=== PATIENT | female | born 1990 | race Caucasian/White ===

== ENCOUNTER → 2016-08-28 | Outpatient (CLI) | payer OTHER ==
[2016-08-28 12:58] LABS: ESTIMATED AVERAGE GLUCOSE 108 mg/dl; HA1C FLAG Normal (Normal)
[2016-08-28 13:16] LABS: CHOLESTEROL/HDL RATIO 2.8
== END | disposition home or self-care (01) ==
LOC: C.LAB 11:37
PROVIDERS: ATTEND Physician Assistant
DX: E78.5 Hyperlipidemia, unspecified (principal)

== ENCOUNTER → 2017-11-16 | Outpatient (CLI) | payer BC ==
[2017-11-16 11:14] LABS: ALBUMIN 3.4 gm/dl (3.4-5.0); ALKALINE PHOSPHATASE 42 U/L (45-117); ALT/SGPT 22 U/L (12-78); AST/SGOT 12 U/L (15-37); BLOOD UREA NITROGEN 11 mg/dl (7-18); CALCIUM 8.5 mg/dl (8.5-10.1); CARBON DIOXIDE 25 mmol/L (21-32); CHOLESTEROL 194 mg/dl (0-200); GLUCOSE 82 mg/dl (70-99); HEMOGLOBIN A1C 5.3 % (4.5-5.6); LDL CHOLESTEROL CALCULATED 106 mg/dl; POTASSIUM 3.9 mmol/L (3.5-5.1); SODIUM 140 mmol/L (136-145); TOTAL PROTEIN 6.9 gm/dl (6.4-8.2)
== END | disposition home or self-care (01) ==
LOC: C.LAB 10:23
PROVIDERS: ATTEND Physician Assistant
DX: E28.2 Polycystic ovarian syndrome (principal); E16.1 Other hypoglycemia; E66.01 Morbid (severe) obesity due to excess calories; E78.5 Hyperlipidemia, unspecified; E55.9 Vitamin D deficiency, unspecified

== ENCOUNTER 2019-04-20 07:39 | Inpatient (IN) ==
[2019-04-20] MEDS ORDERED: OXYTOCIN 30 UNITS/500 ML BAG IV PRN ×3 (08:17→23:20)
[2019-04-20] MEDS: LACTATED RINGER'S 1,000 ML IV PRN ×3 (08:40→19:03)
--- NOTE | 2019-04-20 08:43 | History & Physical Report ---
Date of Service April 20, 2019 History of Present Illness Primary Care Provider: Gini Tinoco DO Allergies Allergy/AdvReac Type Severity Reaction Status Date / Time amoxicillin Allergy Severe Swelling Verified 04/20/19 08:20 of Lip/Tongue/Throat Penicillins Allergy Intermediate LIP Verified 04/19/19 19:11 SWELLING. sertraline [From Zoloft] AdvReac Intermediate Fainting Verified 04/20/19 08:20 Home Medications Home Medications Medication Instructions Recorded Confirmed Type duloxetine [Cymbalta] 40 mg PO DAILY 01/11/19 04/19/19 History vit no.[id number] 1 tab PO DAILY 01/11/19 04/19/19 History [ Vitamin] ranitidine HCl [Zantac] 150 mg PO DAILY 01/11/19 04/19/19 History trazodone 150 mg PO HS PRN 01/11/19 04/19/19 History OneTouch Delica Plus Lancet 33 #150 ea NS 01/22/19 04/17/19 Rx gauge OneTouch Verio #150 ea NS 01/22/19 04/17/19 Rx OneTouch Verio Flex Start #1 ea NS 01/22/19 04/17/19 Rx insulin aspart U-100 100 unit/mL See Rx Instructions SQ .COMPLEX 03/13/19 04/19/19 Rx (3 mL) subcutaneous pen #15 ml insulin syringe-needle U-100 0.3 #50 ea 03/13/19 04/17/19 Rx mL 31 gauge x 5/16" pen needle, diabetic 32 gauge x #100 ea 03/13/19 04/17/19 Rx 5/32" cetirizine 10 mg PO DAILY 04/03/19 04/19/19 History insulin NPH isoph U-100 human 35 units SQ QPM 04/19/19 04/19/19 History [Novolin N NPH U-100 Insulin] Patient History Surgical History (Updated 03/21/19 @ 11:10 by Timi Bernard Jr, MD, FACOG) H/O wisdom tooth extraction (Resolved) Family History (Updated 12/01/18 @ 10:42 by Gini Ramsey) Father Deep vein thrombosis Heart disease Dyslipidemia Hypertension Aunt Ovarian cancer Grandfather (Maternal) No problems noted. Grandfather (Paternal) No problems noted. Grandmother (Maternal) No problems noted. Grandmother (Paternal) No problems noted. Mother Depression Breast cancer Cataract Thyroid disease Uncle Colorectal cancer Diabetes Other COPD (chronic obstructive pulmonary disease) Social History (Updated 12/01/18 @ 10:42 by Gini Ramsey) Preferred Language: Jamaican marital status: Feels Safe at Home: Yes Smoking Status: Never smoker Second Hand Exposure: No ; Hx Alcohol Use: No Hx Substance Use: No Results & Data Vital Signs (Past 12 Hours) Vital Signs Pulse BP 04/20/19 08:02 102 H 129/82
--- NOTE | 2019-04-20 08:44 | History & Physical Report ---
Date of Service April 20, 2019 Assessment & Plan (1) Supervision of normal first : with insulin controlled DM who presents to the L&D floor for induction of labor for post-dates after mcintyre bulb placement. 1) Induction of labor - pitocin started at 0.06u/hr for labor augmentation - will continue to monitor tocometry and FHT - continue supportive care - will re-eval and rupture membranes if necessary during the course of augmentation 2) Insulin managed DM - blood sugar checks Q1H - NPO - carbohydrates for low BSG PRN 3) Anxiety and Depression - continue home medications of cymbalta 40 mg QAM and trazodone 150mg QHS FEN/GI: Lactated ringers 125 ml/hr Q8H + Pit 30u/500 mL Q24H DVT Ppx: none Diet: NPO Code status: Full Dispo: L&D (2) Insulin controlled gestational diabetes mellitus (GDM) during , antepartum: (3) PCOS (polycystic ovarian syndrome): (4) Anxiety: History of Present Illness Primary Care Provider: Gini Tinoco, DO [id number] confirmed via ultrasound. Here for induction of labor for postdates after mcintyre bulb placement yesterday. Complications with this include management of insulin controlled GDM. Has been attending OB appointments regularly. PMH includes anxiety and depression treated with Cymbalta 40mg QAM and Trazodone 150 mg Nightly, as well as PCOS. No previous hx of pregnancies or miscarriages. Fmhx includes mother who had 7 miscarriages prior to 2 viable pregnancies -- patient unsure if cause of miscarriages was PCOS or other disorder. No coagulopathies or bleeding disorders to patient's knowledge. Radha bliss takes 5 units of short acting insulin with breakfast and lunch, 10 units with dinner and 35 unit of long acting insulin at bedtime. Last night she took only 30 units as she will be NPO during induction. Contractions: occasional, non-rhythmic. Fluid or Blood loss: none Movement: active Labs Blood type: A+ Antibody screen: negative H.0 Hct: 40.8 Wbc: 10.03 Plt: 202 Rubella: immune VDRL/RPR: nonreactive Gonorrhea: not detected Chlamydia: not detected GBS: negative Glucose tolerance x2:DM managed with insulin Allergies Allergy/AdvReac Type Severity Reaction Status Date / Time amoxicillin Allergy Severe Swelling Verified 04/20/19 08:20 of Lip/Tongue/Throat Penicillins Allergy Intermediate LIP Verified 04/19/19 19:11 SWELLING. sertraline [From Zoloft] AdvReac Intermediate Fainting Verified 04/20/19 08:20 Home Medications Home Medications Medication Instructions Recorded Confirmed Type duloxetine [Cymbalta] 40 mg PO DAILY 01/11/19 04/19/19 History vit no.[id number] 1 tab PO DAILY 01/11/19 04/19/19 History [ Vitamin] ranitidine HCl [Zantac] 150 mg PO DAILY 01/11/19 04/19/19 History trazodone 150 mg PO HS PRN 01/11/19 04/19/19 History OneTouch Delica Plus Lancet 33 #150 ea NS 01/22/19 04/17/19 Rx gauge OneTouch Verio #150 ea NS 01/22/19 04/17/19 Rx OneTouch Verio Flex Start #1 ea NS 01/22/19 04/17/19 Rx insulin aspart U-100 100 unit/mL See Rx Instructions SQ .COMPLEX 03/13/19 04/19/19 Rx (3 mL) subcutaneous pen #15 ml insulin syringe-needle U-100 0.3 #50 ea 03/13/19 04/17/19 Rx mL 31 gauge x 5/16" pen needle, diabetic 32 gauge x #100 ea 03/13/19 04/17/19 Rx 5/32" cetirizine 10 mg PO DAILY 04/03/19 04/19/19 History insulin NPH isoph U-100 human 35 units SQ QPM 04/19/19 04/19/19 History [Novolin N NPH U-100 Insulin] Patient History Medical History Anxiety (Chronic) Metabolic syndrome PCOS (polycystic ovarian syndrome) (Chronic) Pre-diabetes Restless leg syndrome (Chronic) Varicella Surgical History H/O wisdom tooth extraction (Resolved) Family History Father Deep vein thrombosis Heart disease Dyslipidemia Hypertension Aunt Ovarian cancer Grandfather (Maternal) No problems noted. Grandfather (Paternal) No problems noted. Grandmother (Maternal) No problems noted. Grandmother (Paternal) No problems noted. Mother Depression Breast cancer Cataract Thyroid disease Uncle Colorectal cancer Diabetes Other COPD (chronic obstructive pulmonary disease) Social History Preferred Language: Moroccan Communication Ability: Effective Beliefs That Will Affect Care: None marital status: Current Living Situation: Spouse Other Information That Helps Us Care for You: No Feels Safe at Home: Yes Safety Concerns: Feels Safe At This Time Smoking Status: Never smoker Do You Dip or Chew Tobacco: No ; Second Hand Exposure: No ; Hx Alcohol Use: No Hx Substance Use: No Review of Systems no fever, no chills and no fatigue no diplopia no cough, no dyspnea and no wheezing no chest pain, no edema and no calf pain no abdominal pain, no nausea, no vomiting, no cramping, no constipation and no diarrhea/loose stools no dysuria and no difficulty urinating no back pain no headache(s) Physical Exam Constitutional: well developed and well nourished Respiratory: normal respiratory effort; no respiratory distress, no labored breathing and no cough Auscultation: no diminished lung sounds, no crackles, no rales, no rhonchi and no wheezes Cardiovascular: Rate/Rhythm: regular rate and regular rhythm Extremities: normal capillary refill; no calf tenderness and no pedal edema Gastrointestinal (Abdomen): Inspection/Auscultation: + abdomen distended and normal bowel sounds Percussion/Palpation: abdomen nontender and no guarding Genitourinary: Cervical Exam per Dr. Coombs Dilation - 4cm Effacement - 80% Station - -2, anterior, soft Results & Data Vital Signs (Past 12 Hours) Vital Signs Pulse BP 04/20/19 08:02 102 H 129/82 04/20/19 Range/Units 08:37 WBC 10.03 (4.8-10.8) K/uL RBC 4.58 (4.2-5.4) M/uL Hgb 13.0 (12.0-16.0) g/dL Hct 40.8 (37-47) % MCV 89.1 (80-100) fL MCH 28.4 (25-34) pg MCHC 31.9 L (32-36) g/dL RDW Std Deviation 44.7 (36.4-46.3) fL RDW Coeff of Umberto 13.8 (11.5-14.5) % Plt Count 202 (130-400) K/uL MPV 10.8 H (7.4-10.4) fL Monitoring External Monitor Baseline Hr 140 BPM Accelerations present No late or early decels Moderate Variability Category I heart tracing Tocodynamometer mild contractions every 6 minutes Supervising Physician Co-Signing Physician Notes Resident Physician Supervision Note: I interviewed and examined the patient. Discussed with Dr. Benson and agree with findings and plan as documented in the note. Any exceptions or clarifications are listed here: &P per Dr. Benson. Patient is a with iup at 39 2/7 weeks who presents for induction of labor because of insulin requiring gdm. Patient was prediabetic/pcos prior to so has been treated as a diabetic in . Last us shows a efw 79%, ac 81%. Had mcintyre placed last night and 4cm dilated today. Plan pitocin induction. arom when indicated. Epidural on demand. anticipate . Documented By: Magy Olivares MD, FACOG Resident Activity Tracking Resident Involvement: Resident Care Provided Care Provided: Adult Hospital Medicine and OB Delivery (1) Supervision of normal first Trimester: third trimester Qualified Code(s): Z34.03 - Encounter for supervision of normal first , third trimester
[2019-04-20 08:45] LABS: Hematocrit (blood only) 40.8 % (37-47); Mean Corpuscular Hemoglobin 28.4 pg (25-34); Mean Corpuscular Volume 89.1 fL (80-100); Mean Platelet Volume 10.8 fL (7.4-10.4); Platelet Count 202 K/uL (130-400); RDW Coefficient of Variation 13.8 % (11.5-14.5); RDW Standard Deviation 44.7 fL (36.4-46.3); Red Blood Count 4.58 M/uL (4.2-5.4); White Blood Count 10.03 K/uL (4.8-10.8)
[2019-04-20 08:49] LABS: Mean Corpuscular Hgb Conc 31.9 g/dL (32-36)
[2019-04-20] MEDS: CARBOHYDRATES FOR HYPOGLYCEMIA PO PRN ×3 (09:00→15:45)
--- NOTE | 2019-04-20 12:59 | Labor Progress Brief Note ---
Date of Service April 20, 2019 Subjective Noting some contractions. Assessment & Plan (1) Insulin controlled gestational diabetes mellitus (GDM) during , antepartum: continue pitocin induction. epidural on demand. Fetus category one. Anticipate . sugars being managed goal 70-120. Physical Exam Constitutional: WD/WN, vitals as above Psychiatric: A+Ox3, euthymic affect Genitourinary: cx--4/80/-2 arom--green mec toco--q2-3min, pit at 7 efm--130s wtih mod variability, accels to 150s, no decels Results & Data Vital Signs (Past 12 Hours) Vital Signs Temp Pulse Resp BP 04/20/19 12:05 86 114/66 04/20/19 11:00 94 H 129/71 04/20/19 10:00 91 H 121/75 04/20/19 08:58 96 H 131/78 04/20/19 08:02 102 H 129/82 04/20/19 07:52 36.7 C 20
[2019-04-20] MEDS ORDERED: ePHEDrine sulfate 50 MG/ML AMP ONE (13:57)
[2019-04-20] MEDS ORDERED: BUPIVACAINE 0.25% 30 ML VIAL ONE (13:57)
[2019-04-20] MEDS ORDERED: fentaNYL citrate 100 MCG/2 ML VIAL ONE (13:57)
[2019-04-20] MEDS ORDERED: fentaNYL 2MCG/ML ROPIV 1.25MG/ML 100 ML BAG EPI ONE (13:58)
--- NOTE | 2019-04-20 14:17 | Anesthesiology Consultation ---
Date of Service April 20, 2019 Assessment & Plan (1) Encounter for pre-operative examination: Chart Review Chart Review: Patient NOT seen in Pre Admission Testing and Acceptable Risk for Labor Epidural Consults Requested none History Height/Weight Height: 5 ft 4 in Weight: 113.852 kg Allergies Allergy/AdvReac Type Severity Reaction Status Date / Time amoxicillin Allergy Severe Swelling Verified 04/20/19 08:20 of Lip/Tongue/Throat Penicillins Allergy Intermediate LIP Verified 04/19/19 19:11 SWELLING. sertraline [From Zoloft] AdvReac Intermediate Fainting Verified 04/20/19 08:20 Medications Home Medications Medication Instructions Recorded Confirmed Last Taken duloxetine [Cymbalta] 40 mg PO DAILY 01/11/19 04/20/19 04/20/19 06:00 1 vit no.[id number] 1 tab PO DAILY 01/11/19 04/20/19 04/19/19 06:00 [ Vitamin] 1 ranitidine HCl [Zantac] 150 mg PO DAILY 01/11/19 04/20/19 04/20/19 06:00 1 trazodone 150 mg PO HS PRN 01/11/19 04/20/19 04/19/19 22:30 OneTouch Delica Plus Lancet 33 #150 ea NS 01/22/19 04/17/19 Unknown gauge OneTouch Verio #150 ea NS 01/22/19 04/17/19 Unknown OneTouch Verio Flex Start #1 ea NS 01/22/19 04/17/19 Unknown insulin aspart U-100 100 unit/mL See Rx Instructions SQ .COMPLEX 03/13/19 04/20/19 04/19/19 19:00 (3 mL) subcutaneous pen #15 ml insulin syringe-needle U-100 0.3 #50 ea 03/13/19 04/17/19 Unknown mL 31 gauge x 5/16" pen needle, diabetic 32 gauge x #100 ea 03/13/19 04/17/19 Unknown 5/32" cetirizine 10 mg PO DAILY 04/03/19 04/20/19 04/19/19 22:00 1 insulin NPH isoph U-100 human 35 units SQ QPM 04/19/19 04/20/19 04/19/19 21:00 [Novolin N NPH U-100 Insulin] Active Medications Generic Name Dose Route Start Last Admin Trade Name Freq PRN Reason Stop Dose Admin Lactated Ringer's 1,000 mls @ 125 mls/hr 04/20/19 08:17 04/20/19 14:00 Lr IV 04/22/19 08:16 999 mls/hr .Q8H PRN Infusion L&D Protocol Protocol Oxytocin 30 units in 500 mls @ 7 mls/hr 04/20/19 08:17 04/20/19 11:55 Pitocin IV 04/22/19 08:16 0.42 units/hr .Q24H PRN 7 mls/hr Labor Induction/Augmentation Titration Protocol 0.42 UNITS/HR Miscellaneous 0 gm 04/20/19 10:11 04/20/19 12:15 Carbohydrates For Hypoglycemia PO 05/20/19 10:10 30 gm PRN PRN Administration Hypoglycemia Treatment Past Medical History Medical History Anxiety (Chronic) Metabolic syndrome PCOS (polycystic ovarian syndrome) (Chronic) Pre-diabetes Restless leg syndrome (Chronic) Varicella Exercise / Class Metabolic Activity II 4-5 Yardwork/Stairs/Walk up hill Past Family History Family History Father Deep vein thrombosis Heart disease Dyslipidemia Hypertension Aunt Ovarian cancer Grandfather (Maternal) No problems noted. Grandfather (Paternal) No problems noted. Grandmother (Maternal) No problems noted. Grandmother (Paternal) No problems noted. Mother Depression Breast cancer Cataract Thyroid disease Uncle Colorectal cancer Diabetes Other COPD (chronic obstructive pulmonary disease) Past Surgical History Surgical History H/O wisdom tooth extraction (Resolved) Past Anesthesia History No Hx of Anesthesia Complications and No Family Hx of Anesthesia Complications History of PONV No Hx of PONV and No Hx of Motion Sickness Social History Smoking Status: Never smoker Do You Dip or Chew Tobacco: No Hx Alcohol Use: No Hx Substance Use: No substance use type: does not use Physical Exam Vital Signs Last Vital Signs Temp 36.7 C 04/20/19 07:52 Pulse 93 H 04/20/19 13:12 Resp 20 04/20/19 07:52 BP 119/68 04/20/19 13:12 Testing Laboratory Results 04/20/19 08:37 04/20/19 04/20/19 04/20/19 13:35 12:36 12:18 POC Glucose 76 88 68 L* 04/20/19 04/20/19 04/20/19 11:17 10:16 09:56 POC Glucose 72 76 68 L* 04/20/19 09:01 POC Glucose 84
[2019-04-20] MEDS ORDERED: NALBUPHINE HCL INJ 10 MG/ML AMP IV PRN (14:18)
[2019-04-20] MEDS ORDERED: ePHEDrine sulfate 50 MG/ML AMP IV PRN (14:18)
[2019-04-20] MEDS ORDERED: NALOXONE HCL 0.4 MG/1 ML VIAL/CARP IV PRN (14:18)
[2019-04-20] MEDS ORDERED: DiphenhydrAMINE HCL 50 MG/ML VIAL IV PRN (14:18)
[2019-04-20] MEDS ORDERED: NALOXONE HCL 1 MG in SODIUM CHLORIDE 0.9% 1000ML 1,000 ML IV PRN (14:18)
[2019-04-20] MEDS ORDERED: fentaNYL 2MCG/ML ROPIV 1.25MG/ML 100 ML BAG EPI PRN (14:18)
[2019-04-20] MEDS ORDERED: ONDANSETRON INJ 2 MG/ML 2 ML VIAL IV PRN (14:18)
--- NOTE | 2019-04-20 17:23 | Labor Progress Brief Note ---
Date of Service April 20, 2019 Subjective noting some discomfort with contractions Assessment & Plan (1) Insulin controlled gestational diabetes mellitus (GDM) during , antepartum: Making nice change. Fetus reassuring. hold pit. Anticipate . Physical Exam Constitutional: WD/WN, vitals as above Psychiatric: A+Ox3, euthymic affect Genitourinary: cx--8/100/0 toco--q2-3min, pit at 9 efm--145 wtih mod variability, accels to 150s, no decels, +scalp stim Results & Data Vital Signs (Past 12 Hours) Vital Signs Temp Pulse Resp BP Pulse Ox 04/20/19 17:16 93 H 97 04/20/19 17:11 97 H 98 04/20/19 17:08 107 H 126/86 04/20/19 17:05 92 H 98 04/20/19 17:00 93 H 96 04/20/19 16:57 97 H 94 04/20/19 16:55 94 H 95 04/20/19 16:53 101 H 124/62 04/20/19 16:51 96 H 94 04/20/19 16:50 88 96 04/20/19 16:46 94 H 92 04/20/19 16:45 102 H 96 04/20/19 16:40 91 H 94 04/20/19 16:39 103 H 94 04/20/19 16:37 108 H 113/61 04/20/19 16:35 94 H 94 04/20/19 16:34 104 H 94 04/20/19 16:30 94 H 93 04/20/19 16:28 96 H 94 04/20/19 16:25 98 H 95 04/20/19 16:23 100 H 94 04/20/19 16:22 99 H 114/63 04/20/19 16:20 99 H 94 04/20/19 16:17 93 H 94 04/20/19 16:15 96 H 94 04/20/19 16:12 90 94 04/20/19 16:10 102 H 95 04/20/19 16:07 96 H 116/66 04/20/19 16:06 91 H 94 04/20/19 16:05 97 H 95 04/20/19 16:00 102 H 94 04/20/19 15:59 91 H 93 04/20/19 15:55 93 H 96 12/23/19 15:53 92 H 94 04/20/19 15:52 99 H 117/67 04/20/19 15:50 114 H 95 04/20/19 15:45 96 H 96 04/20/19 15:40 93 H 97 04/20/19 15:37 109 H 122/70 94 04/20/19 15:35 87 94 04/20/19 15:30 85 95 04/20/19 15:25 101 H 95 04/20/19 15:23 98 H 94 04/20/19 15:20 87 95 04/20/19 15:17 91 H 94 04/20/19 15:16 100 H 115/64 04/20/19 15:15 94 H 95 04/20/19 15:10 91 H 114/61 95 04/20/19 15:06 88 117/61 04/20/19 15:05 88 95 04/20/19 15:00 101 H 116/66 96 04/20/19 14:57 112 H 116/69 04/20/19 14:55 96 H 96 04/20/19 14:50 101 H 133/77 96 04/20/19 14:48 100 H 127/72 04/20/19 14:46 98 H 130/71 04/20/19 14:45 100 H 98 04/20/19 14:44 87 132/72 04/20/19 14:41 93 H 94 04/20/19 14:39 101 H 94 04/20/19 14:36 97 H 91 04/20/19 14:34 89 99 04/20/19 14:29 94 H 93 04/20/19 14:24 101 H 95 04/20/19 14:23 96 H 135/77 04/20/19 13:12 93 H 119/68 04/20/19 12:05 86 114/66 04/20/19 11:00 94 H 129/71 04/20/19 10:00 91 H 121/75 04/20/19 08:58 96 H 131/78 04/20/19 08:02 102 H 129/82 04/20/19 07:52 36.7 C 20
--- NOTE | 2019-04-20 19:55 | Labor Progress Brief Note ---
Date of Service April 20, 2019 Subjective some pressure with contractions Assessment & Plan (1) Insulin controlled gestational diabetes mellitus (GDM) during , antepartum: labor down for 30-45 min, then start second stage pushing. BS ok. anticipate Physical Exam Constitutional: WD/WN, vitals as above Psychiatric: A+Ox3, euthymic affect Genitourinary: cx--c/c/+1 toco--q2-4min efm--150s with mod variability, small accels, no decels Results & Data Vital Signs (Past 12 Hours) Vital Signs Temp Pulse Resp BP Pulse Ox 04/20/19 19:52 97 H 127/73 04/20/19 19:51 104 H 99 04/20/19 19:46 95 H 99 04/20/19 19:41 96 H 98 04/20/19 19:37 93 H 117/70 04/20/19 19:36 94 H 97 04/20/19 19:31 94 H 97 04/20/19 19:26 98 H 97 04/20/19 19:22 97 H 127/76 04/20/19 19:21 94 H 98 04/20/19 19:16 95 H 98 04/20/19 19:11 102 H 98 04/20/19 19:08 94 H 139/80 04/20/19 19:06 103 H 98 04/20/19 19:01 92 H 18 98 04/20/19 19:00 37.2 C 18 04/20/19 18:56 98 H 98 04/20/19 18:53 98 H 131/74 04/20/19 18:51 91 H 97 04/20/19 18:46 108 H 97 04/20/19 18:41 99 H 99 04/20/19 18:37 99 H 122/74 04/20/19 18:36 94 H 99 04/20/19 18:31 94 H 97 04/20/19 18:26 94 H 97 04/20/19 18:24 91 H 140/84 04/20/19 18:21 100 H 99 04/20/19 18:16 95 H 98 04/20/19 18:11 91 H 97 04/20/19 18:09 92 H 138/80 04/20/19 18:06 99 H 97 04/20/19 18:01 90 96 04/20/19 17:56 92 H 98 04/20/19 17:53 97 H 111/68 04/20/19 17:51 91 H 97 04/20/19 17:46 102 H 97 04/20/19 17:41 98 H 97 04/20/19 17:37 90 119/61 04/20/19 17:36 97 H 97 04/20/19 17:31 100 H 99 04/20/19 17:26 95 H 98 04/20/19 17:23 90 130/67 04/20/19 17:21 95 H 98 04/20/19 17:16 93 H 97 04/20/19 17:11 97 H 98 04/20/19 17:08 107 H 126/86 04/20/19 17:05 92 H 98 04/20/19 17:00 93 H 96 04/20/19 16:58 36.9 C 20 04/20/19 16:57 97 H 94 04/20/19 16:55 94 H 95 04/20/19 16:53 101 H 124/62 04/20/19 16:51 96 H 94 04/20/19 16:50 88 96 04/20/19 16:46 94 H 92 04/20/19 16:45 102 H 96 04/20/19 16:40 91 H 94 04/20/19 16:39 103 H 94 04/20/19 16:37 108 H 113/61 04/20/19 16:35 94 H 94 04/20/19 16:34 104 H 94 04/20/19 16:30 94 H 93 04/20/19 16:28 96 H 94 04/20/19 16:25 98 H 95 04/20/19 16:23 100 H 94 04/20/19 16:22 99 H 114/63 04/20/19 16:20 99 H 94 04/20/19 16:17 93 H 94 04/20/19 16:15 96 H 94 04/20/19 16:12 90 94 04/20/19 16:10 102 H 95 04/20/19 16:07 96 H 116/66 04/20/19 16:06 91 H 94 04/20/19 16:05 97 H 95 04/20/19 16:00 102 H 94 04/20/19 15:59 91 H 93 04/20/19 15:55 93 H 96 04/20/19 15:53 92 H 94 04/20/19 15:52 99 H 117/67 04/20/19 15:50 114 H 95 04/20/19 15:45 96 H 96 04/20/19 15:40 93 H 97 04/20/19 15:37 109 H 122/70 94 04/20/19 15:35 87 94 04/20/19 15:30 85 95 04/20/19 15:25 101 H 95 04/20/19 15:23 98 H 94 04/20/19 15:20 87 95 04/20/19 15:17 91 H 94 04/20/19 15:16 100 H 115/64 04/20/19 15:15 94 H 95 04/20/19 15:10 91 H 114/61 95 04/20/19 15:06 88 117/61 04/20/19 15:05 88 95 04/20/19 15:00 101 H 116/66 96 04/20/19 14:57 112 H 116/69 04/20/19 14:55 96 H 96 04/20/19 14:50 101 H 133/77 96 04/20/19 14:48 100 H 127/72 04/20/19 14:46 98 H 130/71 04/20/19 14:45 100 H 98 04/20/19 14:44 87 132/72 04/20/19 14:41 93 H 94 04/20/19 14:39 101 H 94 04/20/19 14:36 97 H 91 04/20/19 14:34 89 99 04/20/19 14:29 94 H 93 04/20/19 14:24 101 H 95 04/20/19 14:23 96 H 135/77 04/20/19 13:12 93 H 119/68 04/20/19 12:05 86 114/66 04/20/19 11:00 94 H 129/71 04/20/19 10:00 91 H 121/75 04/20/19 08:58 96 H 131/78 04/20/19 08:02 102 H 129/82
--- NOTE | 2019-04-20 21:38 | Delivery Summary ---
Vaginal Delivery Summary Date of Service April 20, 2019 Vaginal Delivery Summary Pre-operative Diagnosis: iup at 39 5/7 insulin requiring GDM Post-operative Diagnosis: same thick meconium Procedure: mcintyre bulb pitocin induction arom first degree laceration repair EBL: 350cc Anesthesia: epidural Procedure: The patient was induced for insulin requiring GDM. Had mcintyre placed previous night. Pitocin induction, arom for thick green mec. the patient prog ressed to c/c/+1-2 station. The patient pushed for for about 45 minutes to deliver a viable female in KATELYN position. There was no nuchal cord and the anterior shoulder was immediately delivered without difficulty. The rest of the baby was then delivered. The nose and mouth were bulb suctioned. The baby was vigorous. The infant was placed in the maternal abdomen for drying and attention. Cord was clamped and cut at at about 30 secs of life. Cord blood and gases obtained. Placenta delivered spontaneous, intact with a three vessel cord. Cervix/sulci/rectum were intact. A first degree perineal laceration was repaired in the normal standard fashion. Hemostasis obtained with dilute pitocin and fundal massage. Apgars were 8/8. Mother and baby doing well at the end of the delivery. [facility] Vaginal Delivery Charge Vaginal Delivery Codes: 87732 global code for the antepartum, delivery, and post-
[2019-04-20] MEDS ORDERED: HYDROCORTISONE ACETATE 25 MG SUPP PR PRN (23:20)
[2019-04-20] MEDS ORDERED: SUPERCREAM 0.870% 15 GM JAR EXT PRN (23:20)
[2019-04-20] MEDS ORDERED: DIPHTHERIA/TETANUS/PERTUSSIS 0.5 ML SYR/VIAL IM ONE (23:20)
[2019-04-20] MEDS ORDERED: bisacodyL 10 MG SUPP PR PRN (23:20)
[2019-04-20] MEDS ORDERED: OXYCODONE/ACETAMINOPHEN 5mg/325mg TAB PO PRN (23:20)
[2019-04-20] MEDS ORDERED: BENZOCAINE 20% AER SPR 82.5 GM CAN EXT PRN (23:20)
[2019-04-20 23:50] LABS: Base Excess Cord Arterial Bld -8.7 mEq/L (-9-1.8); Base Excess Cord Venous Blood -5.9 mEq/L (-7.7-1.9); CO2 Cord Arterial Blood 55 mmHg (39.1-73.5); Cord Venous Blood HCO3 21 mmol/L (18.4-26.8); Cord Venous Blood PCO2 43 mmHg (30.4-57.2); Cord Venous Blood PO2 30 mmHg (14.1-43.3); Cord Venous Blood pH 7.29 (7.20-7.44); HCO3 Cord Arterial Blood 20 mmol/L (19.7-28.5); Oxygen Sat Cord Arterial Blood < 60.0 % (<60); pH Cord Arterial Blood 7.18 (7.1-7.38)
[2019-04-21] MEDS: IBUPROFEN 600 MG TAB PO PRN ×5 (00:51→21:14)
[2019-04-21 06:29] LABS: Hematocrit (blood only) 35.5 % (37-47); Hemoglobin 11.6 g/dL (12.0-16.0)
--- NOTE | 2019-04-21 06:32 | Obstetrical Progress Note ---
Date of Service April 21, 2019 Assessment & Plan (1) Supervision of normal first : with insulin controlled DM who presents to the L&D floor for induction of labor for post-dates after mcintyre bulb placement. 1)PPD1 s/p with induction - plans to attempt - encouraged ambulation around room after epidural removed - tolerating diet well 2) Insulin managed DM - no insulin in past 24 hours as BSG were running low yesterday - DM2 diet - SSI with meals - carbs for low BSG 3) Anxiety and Depression - continue home medications of cymbalta 40 mg QAM and trazodone 150mg QHS FEN/GI: PO fluid encouraged DVT Ppx: none Diet: carb control Code status: Full Dispo: L&D (2) Insulin controlled gestational diabetes mellitus (GDM) during , antepartum: (3) PCOS (polycystic ovarian syndrome): (4) Anxiety: Supervising Physician Co-Signing Physician Notes Resident Physician Supervision Note: I interviewed and examined the patient. Discussed with Dr. Benson and agree with findings and plan as documented in the note. Any exceptions or clarifications are listed here: Doing well. Routine care. Plan d/c tomorrow. Documented By: Magy Olivares MD, FACOG Subjective No complaints this AM. Still has epidural catheter in. Hasn't gotten up out of bed much. Review of Systems Constitutional: + fatigue; no fever and no chills Respiratory: no cough and no dyspnea Cardiovascular: no chest pain, no syncope, no edema and no calf pain Gastrointestinal: no abdominal pain, no nausea, no vomiting, no cramping, no constipation and no diarrhea/loose stools Genitourinary: no dysuria and no difficulty urinating Neurologic: no headache(s) Physical Exam Constitutional: well developed and well nourished Respiratory: normal respiratory effort; no respiratory distress, no labored breathing and no cough Auscultation: no crackles, no rales, no rhonchi and no wheezes Cardiovascular: Rate/Rhythm: regular rate and regular rhythm Heart Sounds: no gallop, no murmur and no cardiac rub Extremities: no pedal edema Gastrointestinal (Abdomen): Inspection/Auscultation: normal bowel sounds; abdomen not distended Percussion/Palpation: abdomen soft; no guarding Musculoskeletal: no tenderness to palpation of calves bilaterally Genitourinary: Uterus small and firm, palpable in midline at level of umbilicus, no tenderness to palpation. Results & Data Vital Signs (Past 12 Hours) Vital Signs Temp Pulse Resp BP Pulse Ox 04/21/19 04:20 36.5 C 93 H 18 106/72 04/21/19 00:25 37.7 C H 104 H 18 126/76 04/20/19 23:38 103 H 131/65 04/20/19 23:30 37.1 C 18 04/20/19 23:18 113 H 131/69 04/20/19 23:00 18 04/20/19 22:58 105 H 124/75 04/20/19 22:37 125 H 147/65 H 04/20/19 22:36 122 H 210/80 H 04/20/19 22:30 18 04/20/19 22:25 108 H 123/69 04/20/19 22:16 102 H 123/75 04/20/19 22:15 18 04/20/19 22:06 108 H 128/94 04/20/19 22:00 18 04/20/19 21:55 99 H 116/67 04/20/19 21:45 100 H 18 123/70 04/20/19 21:35 107 H 117/71 04/20/19 21:30 37.1 C 110 H 18 111/67 04/20/19 21:22 106 H 123/69 04/20/19 21:16 121 H 96 04/20/19 21:11 117 H 95 04/20/19 21:06 152 H 97 04/20/19 21:01 147 H 96 04/20/19 21:00 37.1 C 18 04/20/19 20:56 120 H 95 04/20/19 20:53 116 H 134/66 04/20/19 20:51 118 H 97 04/20/19 20:46 109 H 98 04/20/19 20:41 107 H 97 04/20/19 20:37 115 H 133/67 04/20/19 20:36 112 H 98 04/20/19 20:31 98 H 98 04/20/19 20:30 18 04/20/19 20:26 106 H 98 04/20/19 20:22 103 H 130/74 12/23/19 20:21 103 H 98 04/20/19 20:16 103 H 99 04/20/19 20:11 106 H 98 04/20/19 20:07 109 H 131/79 04/20/19 20:06 108 H 98 04/20/19 20:01 112 H 99 04/20/19 20:00 18 04/20/19 19:56 103 H 99 04/20/19 19:52 97 H 127/73 04/20/19 19:51 104 H 99 04/20/19 19:46 95 H 99 04/20/19 19:41 96 H 98 04/20/19 19:37 93 H 117/70 04/20/19 19:36 94 H 97 04/20/19 19:31 94 H 97 04/20/19 19:26 98 H 97 04/20/19 19:22 97 H 127/76 04/20/19 19:21 94 H 98 04/20/19 19:16 95 H 98 04/20/19 19:11 102 H 98 04/20/19 19:08 94 H 139/80 04/20/19 19:06 103 H 98 04/20/19 19:01 92 H 18 98 04/20/19 19:00 37.2 C 18 04/20/19 18:56 98 H 98 04/20/19 18:53 98 H 131/74 04/20/19 18:51 91 H 97 04/20/19 18:46 108 H 97 04/20/19 18:41 99 H 99 04/20/19 18:37 99 H 122/74 04/20/19 18:36 94 H 99 04/20/19 18:31 94 H 97 04/21/19 04/20/19 04/20/19 Range/Units 06:16 21:16 21:16 WBC (4.8-10.8) K/uL RBC (4.2-5.4) M/uL Hgb Pending (12.0-16.0) g/dL Hct Pending (37-47) % MCV (80-100) fL MCH (25-34) pg MCHC (32-36) g/dL RDW Std Deviation (36.4-46.3) fL RDW Coeff of Umberto (11.5-14.5) % Plt Count (130-400) K/uL MPV (7.4-10.4) fL Cord ABG pH 7.18 (7.1-7.38) Cord ABG pCO2 55 (39.1-73.5) mmHg Cord ABG pO2 26.0 (4.1-31.7) % Cord ABG HCO3 20 (19.7-28.5) mmol/L Cord ABG Base Excess -8.7 (-9-1.8) mEq/L Cord ABG O2 Sat < 60.0 (<60) % Cord VBG pH 7.29 (7.20-7.44) Cord VBG pCO2 43 (30.4-57.2) mmHg Cord VBG pO2 30 (14.1-43.3) mmHg Cord VBG HCO3 21 (18.4-26.8) mmol/L Cord VBG Base Excess -5.9 (-7.7-1.9) mEq/L Cord VBG O2 Sat 63.0 (<68) % Barometric Pressure 732.8 732.8 mm/Hg Blood Gas Comments WARNER WARNER POC Glucose (70-99) 04/20/19 04/20/19 04/20/19 Range/Units 20:44 19:41 19:21 WBC (4.8-10.8) K/uL RBC (4.2-5.4) M/uL Hgb (12.0-16.0) g/dL Hct (37-47) % MCV (80-100) fL MCH (25-34) pg MCHC (32-36) g/dL RDW Std Deviation (36.4-46.3) fL RDW Coeff of Umberto (11.5-14.5) % Plt Count (130-400) K/uL MPV (7.4-10.4) fL Cord ABG pH (7.1-7.38) Cord ABG pCO2 (39.1-73.5) mmHg Cord ABG pO2 (4.1-31.7) % Cord ABG HCO3 (19.7-28.5) mmol/L Cord ABG Base Excess (-9-1.8) mEq/L Cord ABG O2 Sat (<60) % Cord VBG pH (7.20-7.44) Cord VBG pCO2 (30.4-57.2) mmHg Cord VBG pO2 (14.1-43.3) mmHg Cord VBG HCO3 (18.4-26.8) mmol/L Cord VBG Base Excess (-7.7-1.9) mEq/L Cord VBG O2 Sat (<68) % Barometric Pressure mm/Hg Blood Gas Comments POC Glucose 81 86 68 L* (70-99) 04/20/19 04/20/19 04/20/19 Range/Units 19:05 18:01 17:01 WBC (4.8-10.8) K/uL RBC (4.2-5.4) M/uL Hgb (12.0-16.0) g/dL Hct (37-47) % MCV (80-100) fL MCH (25-34) pg MCHC (32-36) g/dL RDW Std Deviation (36.4-46.3) fL RDW Coeff of Umberto (11.5-14.5) % Plt Count (130-400) K/uL MPV (7.4-10.4) fL Cord ABG pH (7.1-7.38) Cord ABG pCO2 (39.1-73.5) mmHg Cord ABG pO2 (4.1-31.7) % Cord ABG HCO3 (19.7-28.5) mmol/L Cord ABG Base Excess (-9-1.8) mEq/L Cord ABG O2 Sat (<60) % Cord VBG pH (7.20-7.44) Cord VBG pCO2 (30.4-57.2) mmHg Cord VBG pO2 (14.1-43.3) mmHg Cord VBG HCO3 (18.4-26.8) mmol/L Cord VBG Base Excess (-7.7-1.9) mEq/L Cord VBG O2 Sat (<68) % Barometric Pressure mm/Hg Blood Gas Comments POC Glucose 65 L* 75 79 (70-99) 04/20/19 04/20/19 04/20/19 Range/Units 16:00 15:42 14:42 WBC (4.8-10.8) K/uL RBC (4.2-5.4) M/uL Hgb (12.0-16.0) g/dL Hct (37-47) % MCV (80-100) fL MCH (25-34) pg MCHC (32-36) g/dL RDW Std Deviation (36.4-46.3) fL RDW Coeff of Umberto (11.5-14.5) % Plt Count (130-400) K/uL MPV (7.4-10.4) fL Cord ABG pH (7.1-7.38) Cord ABG pCO2 (39.1-73.5) mmHg Cord ABG pO2 (4.1-31.7) % Cord ABG HCO3 (19.7-28.5) mmol/L Cord ABG Base Excess (-9-1.8) mEq/L Cord ABG O2 Sat (<60) % Cord VBG pH (7.20-7.44) Cord VBG pCO2 (30.4-57.2) mmHg Cord VBG pO2 (14.1-43.3) mmHg Cord VBG HCO3 (18.4-26.8) mmol/L Cord VBG Base Excess (-7.7-1.9) mEq/L Cord VBG O2 Sat (<68) % Barometric Pressure mm/Hg Blood Gas Comments POC Glucose 79 68 L* 74 (70-99) 04/20/19 04/20/19 04/20/19 Range/Units 13:35 12:36 12:18 WBC (4.8-10.8) K/uL RBC (4.2-5.4) M/uL Hgb (12.0-16.0) g/dL Hct (37-47) % MCV (80-100) fL MCH (25-34) pg MCHC (32-36) g/dL RDW Std Deviation (36.4-46.3) fL RDW Coeff of Umberto (11.5-14.5) % Plt Count (130-400) K/uL MPV (7.4-10.4) fL Cord ABG pH (7.1-7.38) Cord ABG pCO2 (39.1-73.5) mmHg Cord ABG pO2 (4.1-31.7) % Cord ABG HCO3 (19.7-28.5) mmol/L Cord ABG Base Excess (-9-1.8) mEq/L Cord ABG O2 Sat (<60) % Cord VBG pH (7.20-7.44) Cord VBG pCO2 (30.4-57.2) mmHg Cord VBG pO2 (14.1-43.3) mmHg Cord VBG HCO3 (18.4-26.8) mmol/L Cord VBG Base Excess (-7.7-1.9) mEq/L Cord VBG O2 Sat (<68) % Barometric Pressure mm/Hg Blood Gas Comments POC Glucose 76 88 68 L* (70-99) 04/20/19 04/20/19 04/20/19 Range/Units 11:17 10:16 09:56 WBC (4.8-10.8) K/uL RBC (4.2-5.4) M/uL Hgb (12.0-16.0) g/dL Hct (37-47) % MCV (80-100) fL MCH (25-34) pg MCHC (32-36) g/dL RDW Std Deviation (36.4-46.3) fL RDW Coeff of Umberto (11.5-14.5) % Plt Count (130-400) K/uL MPV (7.4-10.4) fL Cord ABG pH (7.1-7.38) Cord ABG pCO2 (39.1-73.5) mmHg Cord ABG pO2 (4.1-31.7) % Cord ABG HCO3 (19.7-28.5) mmol/L Cord ABG Base Excess (-9-1.8) mEq/L Cord ABG O2 Sat (<60) % Cord VBG pH (7.20-7.44) Cord VBG pCO2 (30.4-57.2) mmHg Cord VBG pO2 (14.1-43.3) mmHg Cord VBG HCO3 (18.4-26.8) mmol/L Cord VBG Base Excess (-7.7-1.9) mEq/L Cord VBG O2 Sat (<68) % Barometric Pressure mm/Hg Blood Gas Comments POC Glucose 72 76 68 L* (70-99) 04/20/19 04/20/19 Range/Units 09:01 08:37 WBC 10.03 (4.8-10.8) K/uL RBC 4.58 (4.2-5.4) M/uL Hgb 13.0 (12.0-16.0) g/dL Hct 40.8 (37-47) % MCV 89.1 (80-100) fL MCH 28.4 (25-34) pg MCHC 31.9 L (32-36) g/dL RDW Std Deviation 44.7 (36.4-46.3) fL RDW Coeff of Umberto 13.8 (11.5-14.5) % Plt Count 202 (130-400) K/uL MPV 10.8 H (7.4-10.4) fL Cord ABG pH (7.1-7.38) Cord ABG pCO2 (39.1-73.5) mmHg Cord ABG pO2 (4.1-31.7) % Cord ABG HCO3 (19.7-28.5) mmol/L Cord ABG Base Excess (-9-1.8) mEq/L Cord ABG O2 Sat (<60) % Cord VBG pH (7.20-7.44) Cord VBG pCO2 (30.4-57.2) mmHg Cord VBG pO2 (14.1-43.3) mmHg Cord VBG HCO3 (18.4-26.8) mmol/L Cord VBG Base Excess (-7.7-1.9) mEq/L Cord VBG O2 Sat (<68) % Barometric Pressure mm/Hg Blood Gas Comments POC Glucose 84 (70-99) Resident Activity Tracking Resident Involvement: Resident Care Provided Care Provided: Adult [facility] (1) Supervision of normal first Trimester: third trimester Qualified Code(s): Z34.03 - Encounter for sup ervision of normal first , third trimester
--- NOTE | 2019-04-21 07:37 | Anesthesia Procedure Note ---
Date of Service April 21, 2019 Anesthesia Post Epidural Note Vital Signs Vital Signs: Temp Pulse Resp BP Pulse Ox 36.5 C 93 H 18 106/72 96 04/21/19 04:20 04/21/19 04:20 04/21/19 04:20 04/21/19 04:20 04/20/19 21:16 Pain Intensity Bilateral Abdomen: Pain Intensity: 3 Notes Mental Status: alert / awake / arousable and participated in evaluation Nausea / Vomiting: adequately controlled Pain: adequately controlled Airway Patency, RR, SpO2: stable & adequate BP & HR: stable & adequate Hydration State: stable & adequate Neuraxial Anesthesia: was administered and sensory block is resolving Anesthetic Complications: no major complications apparent and Pt Satisfied with anesthetic care Epidural: Removed without complications and With tip intact
[2019-04-21] MEDS: ACETAMINOPHEN 325 MG TAB PO PRN ×3 (07:48→23:12)
[2019-04-21] MEDS: DOCUSATE SODIUM 100 MG CAP PO SCH ×2 (07:48→21:14)
[2019-04-21] MEDS: PRENATAL VITAMIN 1 TAB PO SCH (07:48)
[2019-04-21] MEDS: DULOXETINE HCL 20 MG CAP PO SCH (08:48)
[2019-04-21] MEDS: CETIRIZINE HCL 10 MG TABLET PO SCH (08:49)
[2019-04-21] MEDS ORDERED: bisacodyL 5 MG TABEC PO SCH (20:00)
[2019-04-22] MEDS: IBUPROFEN 600 MG TAB PO PRN ×3 (01:32→17:13)
--- NOTE | 2019-04-22 07:16 | Obstetrical Progress Note ---
Date of Service PPD # 1.5 Well, minimal bleeding. No ext pain April 22, 2019 Assessment & Plan (1) Normal delivery: Continue current care Physical Exam Constitutional WD/WN, vitals as above Genitourinary uterus firm, non tender. Ext neg Results & Data Vital Signs (Past 12 Hours) Vital Signs Temp Pulse Resp BP Pulse Ox 04/21/19 23:15 98.1 F 92 H 20 109/73 97 04/21/19 21:00 97.7 F 95 H 17 118/76 97
[2019-04-22] MEDS: DOCUSATE SODIUM 100 MG CAP PO SCH ×2 (08:46→20:42)
[2019-04-22] MEDS: PRENATAL VITAMIN 1 TAB PO SCH (08:46)
[2019-04-22] MEDS: CETIRIZINE HCL 10 MG TABLET PO SCH (09:11)
[2019-04-22] MEDS: DULOXETINE HCL 20 MG CAP PO SCH (09:11)
[2019-04-22] MEDS: ACETAMINOPHEN 325 MG TAB PO PRN (09:56)
== END 2019-04-22 22:45 | disposition home or self-care (01) | DRG 807 ==
LOC: 4S1 07:39 → 4S2 04-21 00:23

== ENCOUNTER 2021-02-14 19:55 | Inpatient (IN) ==
[2021-02-14] MEDS ORDERED: traZODone HCL 50 MG TAB PO PRN (20:20)
[2021-02-14] MEDS ORDERED: LACTATED RINGER'S 1,000 ML IV PRN (20:21)
[2021-02-14] MEDS ORDERED: OXYTOCIN 30 UNITS/500 ML BAG IV PRN ×2 (20:21→22:58)
[2021-02-14] MEDS ORDERED: FLUARIX QUADRIVALENT 0.5 ML SYR IM ONE (20:25)
--- NOTE | 2021-02-14 20:32 | History & Physical Report ---
Date of Service February 14, 2021 Assessment & Plan (1) Insulin controlled gestational diabetes mellitus (GDM) during : Plan: IUP at 39 weeks in active labor with GDM on insulin complicating the will check BSG Q2H while in labor epidural when/if requested anticipate vaginal - patient aware of risk for shoulder dystocia is increased because of LGA baby. History of Present Illness Primary Care Provider: Gini Tinoco DO Patient is a 30 yo white female who presents at 39 weeks in active labor. contractions have been every 3 minutes and getting stronger over the past 2 hours. (-)SPROM or bloody show. complicated by GDM on insulin with a LGA baby. IOL was planned for tomorrow. Blood sugars have been good in the past several weeks. Last AC was >98%tile, EFW 92%tile. NST's have been reactive. blood type A(+) GBS -negative Allergies Allergy/AdvReac Type Severity Reaction Status Date / Time amoxicillin Allergy Severe Swelling Verified 02/14/21 11:00 of Lip/Tongue/Throat Penicillins Allergy Intermediate LIP Verified 02/14/21 11:00 SWELLING. sertraline [From Zoloft] AdvReac Intermediate Fainting Verified 02/14/21 11:00 Home Medications Medication Instructions Recorded Confirmed Type duloxetine 20 mg capsule,delayed 60 mg PO DAILY 01/11/19 02/14/21 History release (Cymbalta) vits no.124-ferrous fum 1 tab PO DAILY 01/11/19 02/14/21 History 27 mg iron-folic acid 800 mcg tablet ( Vitamin) trazodone 150 mg tablet 150 mg PO HS PRN 01/11/19 02/14/21 History acetone (urine) test (Ketone Urine #50 ea 08/08/20 02/14/21 Rx Test) blood sugar diagnostic (OneTouch #150 ea 08/08/20 02/14/21 Rx Verio test strips) blood-glucose meter (OneTouch #1 ea 08/08/20 02/14/21 Rx Verio Flex meter) lancets 33 gauge (OneTouch Delica #150 ea 08/08/20 02/14/21 Rx Plus Lancet) pen needle, diabetic 32 gauge x #50 ea 08/25/20 02/14/21 Rx 5/32" (BD Ultra-Fine Angelica Pen Needle) insulin syringe-needle U-100 0.3 #150 ea 12/05/20 02/14/21 Rx mL 31 gauge x 5/16" (BD Insulin Syringe Ultra-Fine) insulin NPH isoph U-100 human 100 45 unit SUBCUT QPM 02/14/21 02/14/21 History unit/mL subcutaneous suspension (Novolin N NPH U-100 Insulin isophane) insulin aspart U-100 100 unit/mL 10 unit SUBCUT TID 02/14/21 02/14/21 History subcutaneous solution (Novolog U-100 Insulin aspart) Patient History Medical History Anxiety Insulin controlled gestational diabetes mellitus (GDM) during , antepartum Metabolic syndrome PCOS (polycystic ovarian syndrome) Pre-diabetes Restless leg syndrome Varicella Surgical History H/O wisdom tooth extraction Family History Father Deep vein thrombosis Heart disease Dyslipidemia Hypertension Lung cancer Aunt Ovarian cancer Grandfather (Maternal) No problems noted. Grandfather (Paternal) No problems noted. Grandmother (Maternal) No problems noted. Grandmother (Paternal) No problems noted. Mother Depression Breast cancer Cataract Thyroid disease Uncle Colorectal cancer Diabetes Other COPD (chronic obstructive pulmonary disease) Social History Smoking Status: Never smoker Second Hand Exposure: No; Do You Dip or Chew Tobacco: No; Tobacco Cessation Education Requested by Patient: No Hx Alcohol Use: No Hx Substance Use: No Preferred Language: [place] Communication Ability: Effective Visual Impairment: No Limitations Estate Manager Required: No Beliefs That Will Affect Care: None marital status: marital status details: Jeferson [phone] Current Living Situation: Spouse and Family Current Living Situation Comment: lives with spouse, daughter, 2 dogs, 1 cat, spouse to change litter. 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 Other Information That Helps Us Care for You: No Feels Safe at Home: Yes Safety Concerns: Feels Safe At This Time Assistive Devices: None Review of Systems All systems reviewed & are unremarkable except as noted in HPI & below Physical Exam Constitutional: WD/WN, vitals as above Respiratory: normal respiratory effort, lungs clear to auscultation Cardiovascular: RRR, no murmur, no edema Psychiatric: A+Ox3, euthymic affect Genitourinary: OB Exam Abdomen: + vertex, + estimated weight (8-9 pounds) and + regular contractions (every 3 minutes) Manual OB Exam: + cervical dilation 5 cm, + cervical effacement 100% and + station -1 OB Exam Monitor Tracing: + external FHT monitor used, + external uterine monitor used, + category I and + normal FHT variability Results & Data ([facility]) Vital Signs (Past 12 Hours) Vital Signs Temp Pulse Resp BP 02/14/21 20:14 97.3 F L 20 02/14/21 20:12 104 H 127/84 Code Status & VTE Plan VTE Prophylaxis Plan VTE Prophylaxis will be ordered: No Coding Level of Care Code None Diagnoses Insulin controlled gestational diabetes mellitus (GDM) during O24.414
[2021-02-14 20:47] LABS: Hematocrit (blood only) 40.8 % (37-47); Hemoglobin 13.3 g/dL (12.0-16.0); Mean Corpuscular Hemoglobin 28.4 pg (25-34); Mean Corpuscular Hgb Conc 32.6 g/dL (32-36); Platelet Count 215 K/uL (130-400); RDW Coefficient of Variation 14.2 % (11.5-14.5); RDW Standard Deviation 45.1 fL (36.4-46.3); Red Blood Count 4.69 M/uL (4.2-5.4); White Blood Count 10.47 K/uL (4.8-10.8)
[2021-02-14] MEDS ORDERED: fentaNYL 2MCG/ML ROPIVACAINE 1.25MG/ML 100 ML BAG EPI ONE (20:47)
[2021-02-14] MEDS ORDERED: BUPIVACAINE 0.25% 30 ML VIAL ONE (20:47)
[2021-02-14] MEDS ORDERED: fentaNYL citrate 100 MCG/2 ML VIAL ONE (20:47)
[2021-02-14] MEDS ORDERED: SODIUM CHLORIDE 0.9% INJ 10 ML VIAL ONE (20:47)
[2021-02-14] MEDS ORDERED: ePHEDrine sulfate 50 MG/ML AMP ONE (20:47)
[2021-02-14] MEDS ORDERED: NALBUPHINE HCL INJ 10 MG/ML AMP IV PRN (21:34)
[2021-02-14] MEDS ORDERED: diphenhydrAMINE 50 MG/ML VIAL IV PRN (21:34)
[2021-02-14] MEDS ORDERED: NALOXONE HCL 1 MG in SODIUM CHLORIDE 0.9% 1000ML 1,000 ML IV PRN (21:34)
[2021-02-14] MEDS ORDERED: fentaNYL 2MCG/ML ROPIVACAINE 1.25MG/ML 100 ML BAG EPI PRN (21:34)
[2021-02-14] MEDS ORDERED: NALOXONE HCL 0.4 MG/1 ML VIAL/CARP IV PRN (21:34)
[2021-02-14] MEDS ORDERED: ePHEDrine sulfate 50 MG/ML AMP IV PRN (21:34)
--- NOTE | 2021-02-14 21:37 | Anesthesiology Consultation ---
Date of Service February 14, 2021 Assessment & Plan Chart Review Chart Review: Acceptable Risk for Labor Epidural Consults Requested none History Height/Weight Height: 5 ft 4 in Weight: 112.945 kg Allergies Allergy/AdvReac Type Severity Reaction Status Date / Time amoxicillin Allergy Severe Swelling Verified 02/14/21 11:00 of Lip/Tongue/Throat Penicillins Allergy Intermediate LIP Verified 02/14/21 11:00 SWELLING. sertraline [From Zoloft] AdvReac Intermediate Fainting Verified 02/14/21 11:00 Medications Home Medications Medication Instructions Recorded Confirmed Last Taken duloxetine 20 mg capsule,delayed 60 mg PO DAILY 01/11/19 02/14/21 02/14/21 08:00 release (Cymbalta) vits no.124-ferrous fum 1 tab PO DAILY 01/11/19 02/14/21 02/13/21 22:00 27 mg iron-folic acid 800 mcg tablet ( Vitamin) trazodone 150 mg tablet 150 mg PO HS PRN 01/11/19 02/14/21 02/13/21 22:00 acetone (urine) test (Ketone Urine #50 ea 08/08/20 02/14/21 Unknown Test) blood sugar diagnostic (OneTouch #150 ea 08/08/20 02/14/21 Unknown Verio test strips) blood-glucose meter (OneTouch #1 ea 08/08/20 02/14/21 Unknown Verio Flex meter) lancets 33 gauge (OneTouch Delica #150 ea 08/08/20 02/14/21 Unknown Plus Lancet) pen needle, diabetic 32 gauge x #50 ea 08/25/20 02/14/21 Unknown 5/32" (BD Ultra-Fine Nagelica Pen Needle) insulin syringe-needle U-100 0.3 #150 ea 12/05/20 02/14/21 Unknown mL 31 gauge x 5/16" (BD Insulin Syringe Ultra-Fine) insulin NPH isoph U-100 human 100 45 unit SUBCUT QPM 02/14/21 02/14/21 02/13/21 22:00 unit/mL subcutaneous suspension (Novolin N NPH U-100 Insulin isophane) insulin aspart U-100 100 unit/mL 10 unit SUBCUT TID 02/14/21 02/14/21 02/14/21 12:00 subcutaneous solution (Novolog U-100 Insulin aspart) Active Medications Generic Name Dose Route Start Last Admin Trade Name Georgiana PRN Reason Stop Dose Admin Lactated Ringer's 1,000 mls @ 125 mls/hr 02/14/21 20:21 02/14/21 21:00 Lr IV 02/16/21 20:20 125 mls/hr .Q8H PRN Infusion L&D Protocol Protocol Past Medical History Medical History Anxiety Insulin controlled gestational diabetes mellitus (GDM) during , antepartum Metabolic syndrome PCOS (polycystic ovarian syndrome) Pre-diabetes Restless leg syndrome Varicella Past Family History Family History Father Deep vein thrombosis Heart disease Dyslipidemia Hypertension Lung cancer Aunt Ovarian cancer Grandfather (Maternal) No problems noted. Grandfather (Paternal) No problems noted. Grandmother (Maternal) No problems noted. Grandmother (Paternal) No problems noted. Mother Depression Breast cancer Cataract Thyroid disease Uncle Colorectal cancer Diabetes Other COPD (chronic obstructive pulmonary disease) Past Surgical History Surgical History H/O wisdom tooth extraction Social History Smoking Status: Never smoker Do You Dip or Chew Tobacco: No Hx Alcohol Use: No Hx Substance Use: No substance use type: does not use Physical Exam Vital Signs Last Vital Signs Temp 36.3 C L 02/14/21 20:14 Pulse 127 H 02/14/21 21:34 Resp 18 02/14/21 21:30 BP 120/65 02/14/21 21:31 Pulse Ox 98 02/14/21 21:34 Testing Laboratory Results 02/14/21 20:35 02/14/21 20:31 POC Glucose 94
[2021-02-14] MEDS ORDERED: HYDROCORTISONE ACETATE 25 MG SUPP PR PRN (22:58)
[2021-02-14] MEDS ORDERED: ACETAMINOPHEN 325 MG TAB PO PRN (22:58)
[2021-02-14] MEDS ORDERED: DIPHTHERIA/TETANUS/PERTUSSIS 0.5 ML SYR/VIAL IM ONE (22:58)
[2021-02-14] MEDS ORDERED: oxyCODONE/ACETAMINOPHEN 5mg/325mg TAB PO PRN (22:58)
[2021-02-14] MEDS ORDERED: BENZOCAINE 20% AER SPR 82.5 GM CAN EXT PRN (22:58)
[2021-02-14] MEDS ORDERED: SUPERCREAM 0.870% 15 GM JAR EXT PRN (22:58)
[2021-02-14] MEDS ORDERED: bisacodyL 10 MG SUPP PR PRN (22:58)
--- NOTE | 2021-02-14 23:07 | Delivery Summary ---
Vaginal Delivery Summary Date of Service February 14, 2021 Vaginal Delivery Summary [facility] Patient is a 30-year-old 2 para 1-0-0-1 white female who presents at 39 weeks in active labor. She was to be induced tomorrow because of gestational diabetes on insulin and a large for gestational age baby. Membranes were ruptured for meconium stained fluid after her epidural was effective. Shortly after this there were severe variables with contractions with recovery of the heart rate to the 200 bpm range. She moved rapidly to full dilation and with position changes, IV fluids, and oxygen supplementation the variables stopped. She pushed effectively through 2 contractions to deliver the head. There was a tight double nuchal cord, however the patient's pushed to rapidly deliver the rest of the . There was spontaneous crying and the infant was moving all 4 limbs. The double nuchal cord was reduced after the infant was delivered. She was placed on the mother's abdomen for further attention and drying. The cord was clamped and cut and she was handed off to Dr. Guzman who attended the delivery. After cord blood was obtained the placenta was expressed intact with a three-vessel cord. The perineum was noted to be intact. bleeding was controlled with dilute Pitocin and fundal massage. Estimated blood loss is 200 cc. Mother and were doing well after delivery[place] [facility] [place] Delivery Type Details: [facility]
--- NOTE | 2021-02-14 23:30 | Anesthesia Procedure Note ---
Date of Service February 14, 2021 Anesthesia Post Epidural Note Vital Signs Vital Signs: Temp Pulse Resp BP Pulse Ox 36.5 C 85 18 114/65 98 02/14/21 21:43 02/14/21 23:15 02/14/21 23:15 02/14/21 23:15 02/14/21 22:49 Pain Intensity Bilateral Abdomen: Pain Intensity: 0 Notes Mental Status: alert / awake / arousable Nausea / Vomiting: adequately controlled Pain: adequately controlled Airway Patency, RR, SpO2: stable & adequate BP & HR: stable & adequate Hydration State: stable & adequate Neuraxial Anesthesia: was administered and sensory block is resolving Anesthetic Complications: no major complications apparent and Pt Satisfied with anesthetic care Epidural: Removed without complications and With tip intact
[2021-02-15] MEDS: IBUPROFEN 600 MG TAB PO PRN ×4 (05:37→21:54)
[2021-02-15 06:36] LABS: Hematocrit (blood only) 37.8 % (37-47); Hemoglobin 12.2 g/dL (12.0-16.0); Mean Corpuscular Hemoglobin 28.2 pg (25-34); Mean Corpuscular Hgb Conc 32.3 g/dL (32-36); Mean Corpuscular Volume 87.5 fL (80-100); Mean Platelet Volume 11.6 fL (7.4-10.4); Platelet Count 198 K/uL (130-400); RDW Coefficient of Variation 14.1 % (11.5-14.5); RDW Standard Deviation 45.5 fL (36.4-46.3); Red Blood Count 4.32 M/uL (4.2-5.4)
--- NOTE | 2021-02-15 07:09 | Obstetrical Progress Note ---
Date of Service <Americo Mcgee MD - Last Filed: 02/15/21 07:56> February 15, 2021 Assessment & Plan <Americo Mcgee MD - Last Filed: 02/15/21 07:56> (1) Encounter for care and examination after delivery: PPD 1: stable, routine management * patient voiding without difficulty; ambulating on her own with some difficulty * pain well controlled on analgesia * tolerating regular diet * breast feeding * reassess d/c readiness later today <Becky Maya MD, FACOG - Last Filed: 02/15/21 08:13> (1) Encounter for care and examination after delivery: Subjective <Americo Mcgee MD - Last Filed: 02/15/21 07:56> Marina is a 30-year-old female who is now PPD #1 following spontaneous vaginal delivery at 39 weeks. Reports feeling well overall this morning. + Abdominal cramping & 2/10 pain well managed on analgesics. Voiding +. Tolerating meals well (some nausea, no vomiting) and is ambulating with some difficulty. + Passing gas but no bowel movements. Some persistent lochia with some improvement this morning (about five or six pads since last night). Breast-feeding. Review of Systems Denies fever, chills, sweats Denies shortness of breath, difficulty breathing, chest pain, palpitations, chest pressure. Denies breast pain. Denies dysuria. Denies headache or changes in vision Physical Exam <Americo Mcgee MD - Last Filed: 02/15/21 07:56> General: Alert, oriented. No acute distress. Cardiac: Regular rate and rhythm, no murmurs/rubs/gallops. Respiratory: Clear to auscultation bilaterally a/p, no wheezes/rales/rhonchi. No increased work of breathing. Symmetrical chest rise. No respiratory distress. Abdomen: Soft, nontender, nondistended. Bowel sounds present. Uterus: Uterine fundus firm, palpable 3 cm below umbilicus. Lower Extremities: No lower extremity edema or swelling. No deep calf pain. Felipe's negative bilaterally.. Results & Data ([facility]) <Americo Mcgee MD - Last Filed: 02/15/21 07:56> Vital Signs (Past 12 Hours) Vital Signs Temp Pulse Pulse Resp BP BP Pulse Ox 02/15/21 04:15 36.8 C 84 18 105/66 02/15/21 01:15 36.7 C 91 H 18 124/76 02/15/21 01:00 103 H 129/61 02/15/21 00:45 100 H 134/59 L 02/15/21 00:30 96 H 18 127/57 L 02/15/21 00:15 94 H 129/59 L 02/15/21 00:00 100 H 18 130/60 02/14/21 23:45 100 H 18 130/60 02/14/21 23:30 86 20 118/64 02/14/21 23:15 85 18 114/65 02/14/21 23:00 110 H 18 113/63 02/14/21 22:49 100 H 98 02/14/21 22:45 98 H 106/58 L 02/14/21 22:44 92 H 97 02/14/21 22:39 100 H 100 02/14/21 22:34 93 H 100 02/14/21 22:31 94 H 120/73 02/14/21 22:29 120 H 18 100 02/14/21 22:24 100 H 97 02/14/21 22:19 95 H 97 02/14/21 22:15 94 H 112/64 02/14/21 22:14 102 H 95 02/14/21 22:13 107 H 93 02/14/21 22:09 109 H 97 02/14/21 22:04 114 H 98 02/14/21 22:01 104 H 111/69 02/14/21 22:00 18 02/14/21 21:59 88 98 02/14/21 21:54 88 98 02/14/21 21:49 100 H 99 02/14/21 21:48 99 H 93 02/14/21 21:44 105 H 98 02/14/21 21:43 36.5 C 02/14/21 21:40 103 H 94 02/14/21 21:39 119 H 97 02/14/21 21:34 127 H 98 02/14/21 21:31 117 H 120/65 02/14/21 21:30 18 02/14/21 21:29 115 H 97 02/14/21 21:26 104 H 115/60 02/14/21 21:24 119 H 97 02/14/21 21:21 108 H 111/65 02/14/21 21:20 18 02/14/21 21:19 111 H 95 02/14/21 21:15 113 H 18 111/67 02/14/21 21:14 111 H 98 02/14/21 21:13 100 H 114/64 02/14/21 21:11 101 H 127/57 L 02/14/21 21:10 18 02/14/21 21:09 92 H 112/58 L 97 02/14/21 21:07 93 H 121/62 02/14/21 21:05 92 H 126/72 02/14/21 21:04 90 97 02/14/21 21:01 93 H 91 02/14/21 20:59 99 H 98 02/14/21 20:54 91 H 99 02/14/21 20:14 36.3 C L 20 02/14/21 20:12 104 H 127/84 <Becky Maya MD, FACOG - Last Filed: 02/15/21 08:13> Co-Signing Physician Notes Resident Physician Supervision Note: I interviewed and examined the patient. Discussed with Dr. Mcgee and agree with findings and plan as documented in the note. Any exceptions or clarifications are listed here: [None] Documented By: Becky Maya MD, FACOG Resident Activity Tracking <Americo Mcgee MD - Last Filed: 02/15/21 07:56> Resident Involvement: Resident Care Provided Care Provided: OB Delivery
[2021-02-15] MEDS ORDERED: FLUARIX QUADRIVALENT 0.5 ML SYR IM ONE (07:26)
[2021-02-15] MEDS: DOCUSATE SODIUM 100 MG CAP PO SCH ×2 (08:19→20:27)
[2021-02-15] MEDS: PRENATAL VITAMIN 1 TAB PO SCH (08:21)
[2021-02-15] MEDS: DULoxetine HCL 60 MG CAP PO SCH (08:21)
[2021-02-15] MEDS ORDERED: ONDANSETRON INJ 2 MG/ML 2 ML VIAL IV PRN (08:30)
[2021-02-15] MEDS ORDERED: bisacodyL 5 MG TABEC PO SCH (20:00)
--- NOTE | 2021-02-16 06:56 | Obstetrical Progress Note ---
Date of Service <Americo Mcgee MD - Last Filed: 02/16/21 07:20> February 16, 2021 Assessment & Plan <Americo Mcgee MD - Last Filed: 02/16/21 07:20> (1) Encounter for care and examination after delivery: PPD 1: stable, routine management * patient voiding and ambulating without difficulty * pain well controlled on analgesia * tolerating regular diet * breast feeding * anticipate D/C today pending pediatric ok <Magy Olivares MD, FACOG - Last Filed: 02/16/21 07:27> (1) Encounter for care and examination after delivery: Subjective <Americo Mcgee MD - Last Filed: 02/16/21 07:20> Marina is a 30-year-old female who is now PPD #2 following spontaneous vaginal delivery at 39 weeks. Reports feeling well this morning. 05/08 pain well managed on analgesics. Voiding +. Tolerating meals well and able to ambulate without difficulty. She reports a flare-up of her pre-existing sciatica due to the . Otherwise, she has no complaints. + Passing gas but no bowel movements. Some improvement with her lochia (2 pads overnight) this morning. . Review of Systems Denies fever, chills, sweats Denies shortness of breath, difficulty breathing, chest pain, palpitations, chest pressure. Denies breast pain. Denies dysuria. Denies headache or changes in vision Physical Exam <Americo Mcgee MD - Last Filed: 02/16/21 07:20> General: Alert, oriented. No acute distress. Cardiac: Regular rate and rhythm, no murmurs/rubs/gallops. Respiratory: Clear to auscultation bilaterally a/p, no wheezes/rales/rhonchi. No increased work of breathing. Symmetrical chest rise. No respiratory distress. Abdomen: Soft, nontender, nondistended. Bowel sounds present. Uterus: Uterine fundus firm, palpable 3 cm below and to the left of the umbilicus. Lower Extremities: No lower extremity edema or swelling. No deep calf pain. Felipe's negative bilaterally.. Results & Data ([facility]) <Americo Mcgee MD - Last Filed: 02/16/21 07:20> Vital Signs (Past 12 Hours) Vital Signs Temp Pulse Resp BP Pulse Ox 02/15/21 23:25 36.8 C 85 20 130/79 98 02/15/21 19:55 36.8 C 85 18 125/79 98 <Magy Olivares MD, FACOG - Last Filed: 02/16/21 07:27> Co-Signing Physician Notes Resident Physician Supervision Note: I interviewed and examined the patient. Discussed with Dr. English and agree with findings and plan as documented in the note. Any exceptions or clarifications are listed here: Doing well. Fundus difficult to palpate secondary to obesity, bleeding has been good. Having some feeding issues to evaluate today. Patient is ready for d/c and awaiting peds evaluation. Documented By: Magy Olivares MD, FACOG Resident Activity Tracking <Americo Mcgee MD - Last Filed: 02/16/21 07:20> Resident Involvement: Resident Care Provided Care Provided: OB Delivery
[2021-02-16 07:29] LABS: Hematocrit (blood only) 38.1 % (37-47); Hemoglobin 12.2 g/dL (12.0-16.0)
[2021-02-16] MEDS: IBUPROFEN 600 MG TAB PO PRN (07:31)
[2021-02-16] MEDS: DULoxetine HCL 60 MG CAP PO SCH (08:26)
[2021-02-16] MEDS: PRENATAL VITAMIN 1 TAB PO SCH (08:26)
[2021-02-16] MEDS: DOCUSATE SODIUM 100 MG CAP PO SCH (08:26)
== END 2021-02-16 17:01 | disposition home or self-care (01) | DRG 807 ==
LOC: OPB 19:55 → 4S1 19:57 → 4S2 02-15 01:17